=== PATIENT | female | born 1970 | race Caucasian/White ===

== ENCOUNTER 2024-07-01 10:59 | Emergency (ER) | payer OTHER ==
[~2024-07-01] VITALS: Ht 165.1 cm; Wt 102.0 kg
[2024-07-01] MEDS ORDERED: OZEMPIC0.25 MG/02 SUB-Q (11:41)
[2024-07-01] MEDS ORDERED: ZYRTEC10 MG PO (11:42)
[2024-07-01] MEDS ORDERED: METHIMAZOLE10 MG PO (11:42)
[2024-07-01] MEDS ORDERED: KETOROLAC TROMETHAMINE 30 MG/ML VIAL IV ONE (11:45)
[2024-07-01] MEDS ORDERED: SODIUM CHLORIDE 0.9% 1,000 ML IV ONE (11:45)
[2024-07-01] MEDS ORDERED: ondansetron HCL 4 MG/2 ML VIAL IV ONE (11:45)
[2024-07-01] MEDS ORDERED: HYDROmorphone HCL 1 MG/ML SYR IV ONE (11:45)
[2024-07-01 11:46] LABS: BILIRUBIN, URINE NEGATIVE (negative); BLOOD/HGB, URINE NEGATIVE (Negative); KETONE, URINE NEGATIVE (Negative); LEUK ESTERASE, URINE NEGATIVE (negative); NITRITE, URINE NEGATIVE (negative)
[2024-07-01 11:47] LABS: EOSINOPHILS 1.4 % (0-6); HEMATOCRIT 43.3 % (35.0-50.0); HEMOGLOBIN 14.7 g/dL (12.0-18.0); LYMPHOCYTES 29.1 % (24-44); MCH 29.3 (27-36); MCHC 33.9 g/dl (30-36); MCV 86.4 fl (81-99); MONOCYTES 7.7 % (0-12); NEUTROPHILS 60.8 % (39-80); PLATELET COUNT 241 K/uL (140-440); RBC 5.01 M/ul (4.3-5.7); RDW 13.6 (10.5-15.0)
[2024-07-01 12:03] LABS: ALBUMIN 3.9 g/dL (3.4-5.0); ANION GAP 13.2 (7-21); BILIRUBIN, TOTAL 0.5 ng/dL (0.2-1.0); BUN/CREATININE RATIO 11.94 (6.0-28.6); CALCIUM 9.4 mg/dL (8.5-10.1); CREATININE, SERUM 0.67 mg/dL (0.55-1.02); POTASSIUM 4.2 mmol/L (3.5-5.1); PROTEIN, TOTAL 7.8 g/dL (6.4-8.2)
[2024-07-01] MEDS ORDERED: KETOROLAC TROME10 MG PO (12:45)
[2024-07-01 12:58] VITALS: BP 105/67
== END 2024-07-01 12:59 | disposition home or self-care (01) ==
LOC: ED 10:59
PROVIDERS: Emergency Medicine
DX: R10.32 Left lower quadrant pain (principal); Z91.040 Latex allergy status; Z88.8 Allergy status to other drugs, medicaments and biological substances; Z91.018 Allergy to other foods; Z79.899 Other long term (current) drug therapy
CPT/HCPCS: 36415; 74176; 80053; 81003; 83690; 85025; 96361; 96374; 96375; 99284-25; J1885; J2405; J7030